=== PATIENT | male | born 1975 | race Caucasian/White ===

== ENCOUNTER 2017-10-12 15:39 | Emergency (ER) | payer MEDICAID, OTHER ==
[~2017-10-12] VITALS: Ht 188 cm; Wt 78.0 kg
[~2017-10-12 15:39] MED LIST: Z.0.NO CURRENT MEDS
[2017-10-12 16:35] VITALS: BP 105/57; PULSE 64; RESP 16; TEMP 98.4; O2SAT 96
[2017-10-12] MEDS ORDERED: AUGM875T3 PO (17:29)
--- NOTE | 2017-10-12 17:30 | PD ---
HPI Chief Complaint: Oral / Dental Pain or Problem Time Seen by Provider: 17:21 Travel History International Travel<30 days: No Contact w/Intl Traveler<30days: No Traveled to known affect area: No History of Present Illness HPI This is a 42-year-old male here with right upper dental pain and gum swelling 1 week. Symptom severity is moderate. Denies fever or chills. No aggravating or alleviating factors. No difficulty swallowing. PFSH Past Medical History Medical History: Denies Significant Hx Social History Alcohol Use: Yes (OCCASIONALLY) Tobacco Use: Yes (1 PPD FOR 20 YEARS) Substance Use: No Allergies-Medications (Allergen,Severity, Reaction): Coded Allergies: codeine (Unverified Allergy, Mild, 10/12/17) Reported Meds & Prescriptions Reported Meds & Active Scripts Active Augmentin (Amoxicillin-Clavulanate) 875-125 Mg Tab 1 Tab PO BID Reported No Current Meds (Miscellaneous Medication) Misc Review of Systems Except as stated in HPI: all other systems reviewed are Neg General / Constitutional: No: Fever HENT: Positive: Dental Difficulties Physical Exam Narrative GENERAL: Alert well-appearing 42-year-old male SKIN: Warm and dry. HEAD: Normocephalic. EYES: No injection or drainage. NECK: Supple, trachea midline. No JVD or lymphadenopathy. MOUTH: Tenderness, swelling, erythema of the gum around the right upper first molar. Widespread dental decay. Uvula is midline. Airway is patent. Data Data Last Documented VS Vital Signs Date Time Temp Pulse Resp B/P (MAP) Pulse Ox O2 Delivery O2 Flow Rate FiO2 10/12/17 16:35 98.4 64 16 105/57 (73) 96 Orders Orders Ed Discharge Order (10/12/17 17:30) [facility] Medical Decision Making Medical Screen Exam Complete: Yes Emergency Medical Condition: Yes Differential Diagnosis Dental abscess, dental caries, periodontal disease Narrative Course 42-year-old male here with dental pain and gum swelling and is one week. Patient is nontoxic-appearing. He'll be treated for dental abscess. Diagnosis Primary Impression: Dental abscess Referrals: Dentist Additional Instructions: Antibiotics as directed. Follow-up with dentist. Scripts Meloxicam (Meloxicam) 15 Mg Tab 15 MG PO DAILY for Arthritis Pain, #30 TAB 0 Refills Prov: Julia Lanier 10/12/17 Amoxicillin-Clavulanate (Augmentin) 875-125 Mg Tab 1 TAB PO BID for Infection, #20 TAB 0 Refills Prov: Julia Lanier 10/12/17 Disposition: 01 DISCHARGE HOME Condition: Stable Julia Lanier Oct 12, 2017 17:30
[2017-10-12] MEDS ORDERED: MELO15TA20 PO (17:33)
[2017-10-12] MEDS ORDERED: medical marijuana (17:56)
== END 2017-10-12 18:05 | disposition home or self-care (01) ==
LOC: PHED 15:39 → PHEFT 18:05
DX: K04.7 Periapical abscess without sinus (principal); F17.210 Nicotine dependence, cigarettes, uncomplicated; Z88.5 Allergy status to narcotic agent
CPT/HCPCS: 99283